=== PATIENT | male | born 1995 | race Two or more races ===

== ENCOUNTER 2021-02-07 21:19 | Emergency (ER) | payer SELFPAY ==
[~2021-02-07] VITALS: Ht 175.3 cm; Wt 90.7 kg
[2021-02-07 21:20] VITALS: BP 127/78
== END 2021-02-07 21:50 | disposition left against medical advice (07) ==
LOC: ER 21:19
DX: Z53.21 Procedure and treatment not carried out due to patient leaving prior to being seen by health care provider